=== PATIENT | male | born 2000 | race African-American/Black ===

== ENCOUNTER 2021-11-24 09:49 | Emergency (ER) | payer MEDICAID, SELFPAY ==
[2021-11-24 09:52] VITALS: BP 151/80; PULSE 77; RESP 18; TEMP 36.2; O2SAT 99; BMI 29.3
--- NOTE | 2021-11-24 10:04 | EKG12_ITS ---
Test Reason : GENERAL Blood Pressure : / mmHG Vent. Rate : 079 BPM Atrial Rate : 079 BPM P-R Int : 188 ms QRS Dur : 098 ms QT Int : 376 ms P-R-T Axes : 028 058 025 degrees QTc Int : 431 ms Normal sinus rhythm Normal ECG Confirmed by ARIANNA MADRIGAL, JIA ([id number]), pictures editor ISIS CHIU ([id number]) on 11/27/2021 11:17:20 AM Referred By: Confirmed By:JIA KELLER MD
--- NOTE | 2021-11-24 10:05 | EX.ED.DYSGE1 ---
HPI History of Present Illness Chief Complaint: General Illness Informant: patient and parent Narrative Narrative: 21-year-old male presenting to the emergency department after being referred here from urgent care. Patient states that for about 5 days he has been experiencing lightheadedness and chest tightness that caused him to become nauseated. No vomiting diarrhea. No headache fever chills URI symptoms. He denies any rashes. No room spinning. He notes that sometimes his eyes are sensitive to light. He states that when his symptoms become significant causes him some anxiety. At urgent care he had negative COVID. There is a holosystolic heart murmur heard. Is unclear if this is new as the patient does not know much of his medical history. [facility] Medical History Chronic neck and back pain Fatigue Home Medications NK 11/24/21 [History Last Taken Unknown] Allergy/AdvReac Type Severity Reaction Status Date / Time No Known Allergies Allergy Verified 11/24/21 09:52 Family History Other Lupus Social History (Updated 11/24/21 @ 10:[address] Quintin Harris DO) current gender identity: male Smoking Status: Never smoker substance use type: does not use ROS ROS ED ROS Narrative Lightheadedness Constitutional Constitutional ED: Denies chills or weight loss Eyes Eyes: Reports other Details: light sensitivity ; Denies change in vision or diplopia ENT ENT ED: Denies ear pain, rhinorrhea or sore throat Cardiovascular Cardiovascular: Reports chest pain; Denies orthopnea, palpitations or racing heartbeat Respiratory/Chest Respiratory/Chest: Denies cough, dyspnea or orthopnea Gastrointestinal Gastrointestinal: Reports nausea; Denies abdominal pain, diarrhea or vomiting Genitourinary Genitourinary ED: Denies dysuria, hematuria or urinary frequency Musculoskeletal Musculoskeletal: Denies arthralgias or myalgias Integumentary Denies abscess or rash Neurologic Neurologic: Denies headache(s) or weakness Psychiatric Psychiatric: Denies anxiety, depression, suicidal ideation or suicidal thoughts Endocrine Endocrinology: Denies polydipsia, polyphagia or polyuria Allergic/Immunologic Allergic/Immunologic ED: Denies mouth swelling, tongue swelling or urticaria EXAM Physical Exam Const Vital Signs: 11/24/21 09:52 11/24/21 10:20 Temperature 97.2 F L Temperature Source Temporal Pulse Rate 77 Respiratory Rate 18 Respiratory Effort Normal Non-Labored Respiratory Pattern Normal Blood Pressure 151/80 H Blood Pressure Mean 103 Pulse Ox 99 Oxygen Delivery Method Room Air Positive well nourished and well developed General Appearance ED: well developed HEENT Reports normocephalic, head/scalp atraumatic, TM's clear and moist mucous membranes Negative for trauma Tympanic Membrane ED: Yes TM's clear Eyes PERRL and EOMs intact bilaterally Neck no lymphadenopathy, supple and no JVD Resp normal respiratory effort and clear to auscultation bilaterally Cardio regular rate, regular rhythm and no murmurs GI normal to inspection, nondistended, normoactive bowel sounds and non-tender Palpation: soft Back/Spine no CVA tenderness and normal ROM Extremity normal to inspection General Extremety ED: Negative for edema General Extremity: Negative for edema Neuro oriented x3 and CN's II-XII intact bilaterally Sensorium / Orientation: alert Motor Exam: strength 5/5 throughout Psych mental status grossly normal Mood & Affect: Negative for depressed or tearful Skin no rashes or lesions noted and no wounds MDM MDM MDM Narrative Medical decision making narrative: CBC CMP normal. Troponin normal. My interpretation of the chest x-ray is no acute process. At this point patient's chief complaint of lightheadedness with intermittent nausea is rather nonspecific. Do not see anything obvious at this point but would recommend him following up with establishing primary care. Lab Data Attestation: I reviewed the patient's lab results. Labs: Laboratory Results - last 24 hr 11/24/21 11/24/21 10:25 10:25 WBC 5.4 RBC 5.62 Hgb 15.2 Hct 46.5 MCV 82.7 MCH 27.0 MCHC 32.7 RDW Std Deviation 38.1 RDW Coeff of Emily 12.6 Plt Count 252 MPV 9.8 Immature Gran % (Auto) 0.200 Neut % (Auto) 52.3 Lymph % (Auto) 37.7 [place] % (Auto) 8.5 Eos % (Auto) 0.7 Baso % (Auto) 0.6 Absolute Neuts (auto) 2.8 Absolute Lymphs (auto) 2.03 Nucleated RBC % 0 Sodium 138 Potassium 4.1 Chloride 105 Carbon Dioxide 28.0 Anion Gap 5 BUN 15 Creatinine 1.03 Estim Creat Clear Calc 144.17 Est GFR (MDRD) Af Amer 117 Est GFR (MDRD) Non-Af 97 BUN/Creatinine Ratio 14.6 Glucose 104 Calcium 9.5 Total Bilirubin 0.40 AST 24 ALT 34 Alkaline Phosphatase 85 Troponin I High Sens < 3 L Total Protein 8.1 Albumin 4.3 Globulin 3.8 Albumin/Globulin Ratio 1.1 EKG Initial EKG: Attestation: I personally reviewed and interpreted this EKG as follows: Comments: Normal sinus rhythm with a ventricular rate of 79 bpm Discharge Plan Triage Chief Complaint: General Illness ED Provider: Quintin Harris Dx/Rx/DC Orders Clinical Impression: Lightheadedness, Nausea Prescriptions: No Action NK RF: 0 Primary Care Provider: Care Physician,No Primary Referrals: Care Physician,No Primary [Primary Care Provider] - Activity Restrictions/Additional Instructions: As discussed you may discuss a echocardiogram with your doctor. Disposition Disposition: Home, Self Care
--- NOTE | 2021-11-24 10:09 | NURSING ---
NO OLD EKGS
[2021-11-24 10:44] LABS: Absolute Lymphocyte Count 2.03 X10^3/uL (0.83-4.51); Absolute Neutrophil Count 2.8 X10^3/uL (2.0-7.7); Basophil# 0.03 X10^3/uL; Basophil% 0.6 % (0-1); Eosinophil# 0.04 X10^3/uL; Eosinophils% 0.7 % (0-5); Hematocrit 46.5 % (40-54); Hemoglobin 15.2 g/dL (13.0-16.5); Lymphocyte # 2.03 X10^3/ul (0.83-4.51); Lymphocyte % 37.7 % (19-41); Mean Corp Hgb Conc 32.7 g/dL (32-36); Mean Corpuscular Volume 82.7 fL (80-94); Mean Platelet Vol. 9.8 fl (6.2-12.0); Monocyte# 0.46 X10^3/uL; Monocyte% 8.5 % (0-10); NRBC Flagged by Analyzer 0 % (0-5); Neutrophil # 2.82 X10^3/uL (2.7-7.7); Neutrophil % 52.3 % (47-70); Platelet Count 252 K/mm3 (150-450); RBC Distribution Width CV 12.6 % (11.6-14.6); RBC Distribution Width SD 38.1 fl (35.1-43.9); Red Blood Count 5.62 M/mm3 (4.6-6.2); White Blood Count 5.4 K/mm3 (4.4-11.0)
[2021-11-24 10:57] LABS: ALB/GLOB Ratio 1.1 RATIO (0.9-2.4); AST(SGOT) 24 U/L (15-37); Alanine Aminotransfer ALT/SGPT 34 U/L (16-61); Albumin, Serum 4.3 g/dL (3.2-5.0); Alkaline Phosphatase 85 U/L (45-117); Anion Gap 5 (5-15); BUN 15 mg/dL (7-18); BUN/Creat Ratio 14.6 RATIO (10-20); Calcium,Total 9.5 mg/dL (8.5-10.1); Chloride 105 mmol/L (98-107); Creatinine, Serum 1.03 mg/dL (0.70-1.30); EST Glomerular Filtration Rate 97 mL/min (>60); Est Glom Filt Rate - Afr Amer 117 mL/min (>60); Estimated Creatinine Clearance 144.17 ml/min; Globulin 3.8 g/dL (2.2-4.2); Glucose 104 mg/dL (74-106); Potassium 4.1 mmol/L (3.5-5.1); Protein, Total 8.1 g/dL (6.4-8.2); Sodium Level 138 mmol/L (136-145); Troponin-I HS < 3 pg/mL (3.0-78.0)
--- NOTE | 2021-11-24 11:05 | RAD_ITS ---
STUDY: X-RAY CHEST REASON FOR EXAM: Male, 21 years old. CHEST PAIN TECHNIQUE: Single AP portable view of the chest. COMPARISON: None. FINDINGS: The lungs are clear and expanded. There is no demonstrated pleural abnormality. Normal size heart. Normal mediastinum and annita. Normal visualized pulmonary arteries. Normal visualized aortic arch and descending thoracic aorta. Normal visualized thoracic spine. Normal visualized ribs, clavicles, and shoulders. There is no demonstrated abnormality of the visualized soft tissue structures of the upper abdomen. RAD/Chest 1 View (Portable) IMPRESSION: Normal x-ray examination of the chest. Electronically Signed: Tyler Chapman MD at 11:40 EDT ,
== END 2021-11-24 11:28 | disposition home or self-care (01) ==
PROVIDERS: Emergency Provider Emergency Medicine; Visit Provider Emergency Medicine
DX: R42 Dizziness and giddiness (principal); R11.0 Nausea
CPT/HCPCS: 71045; 80053; 84484; 85025; 93005; 99283; A4216

== ENCOUNTER 2022-11-16 00:12 | Emergency (ER) | payer MEDICAID, SELFPAY ==
[2022-11-16 00:13] VITALS: BP 163/96; PULSE 82; RESP 16; TEMP 36.9; O2SAT 100; BMI 26.6
--- NOTE | 2022-11-16 00:15 | EKG12_ITS ---
Test Reason : PALPS Blood Pressure : / mmHG Vent. Rate : 095 BPM Atrial Rate : 095 BPM P-R Int : 174 ms QRS Dur : 106 ms QT Int : 354 ms P-R-T Axes : 060 058 021 degrees QTc Int : 444 ms Sinus rhythm with occasional and consecutive Premature ventricular complexes Nonspecific ST abnormality Abnormal ECG Confirmed by YOAN MADRIGAL, TAN ([id number]), editorial intern [employer] CHIU ([id number]) on 11/18/2022 1:14:25 PM Referred By: CYDNEY Confirmed By:TAN MILTON MD
--- NOTE | 2022-11-16 00:18 | EDS_ITS ---
HPI History of Present Illness Chief Complaint: Palpitations Narrative Narrative: 22-year-old male here for palpitations. The patient states this started tonight while playing videogames. The patient further states this occurred approximately 2 hours prior to arrival as he was playing videogames. Notes he thinks could be anxiety. Notes he has history of a heart murmur. Denies family history of early cardiac . The patient denies recent surgery in the last 4 weeks or immobilization in the last 3 days, denies previous diagnosis of DVT or PE, hemoptysis, unilateral leg swelling or malignancy with treatment the last 6 months. No estrogen use noted. Denies any bleeding diathesis. Denies any volume loss such as vomiting or diarrhea. Any chest pain or shortness of breath. Denies any dizziness, lightheadedness or excessive fatigue. Denies any recent illness such as cough or or fever. Denies any lower extremity edema, orthopnea or paroxysmal nocturnal dyspnea. PFSH PFS Medical History Chronic neck and back pain Fatigue Home Medications NK 11/24/21 [History Last Taken Unknown] Allergy/AdvReac Type Severity Reaction Status Date / Time No Known Allergies Allergy Verified 11/16/22 00:18 Family History Other Lupus Social History (Updated 11/24/21 @ 10:[address] Quintin Harris DO) Smoking Status: Never smoker substance use type: does not use ROS ROS ED ROS Narrative Constitutional: Denies fever HEENT: Denies sore throat Neck: Denies neck pain Cardiovascular: Endorses palpitations Respiratory: Denies shortness of breath GI: Denies nausea vomiting or abdominal pain : Denies changes in urinary habits Musculoskeletal: Denies muscle or joint pain Neurologic: Denies numbness weakness or loss of sensation Skin denies rash EXAM Physical Exam Narrative Exam Narrative: Nursing triage notes reviewed, Vital signs reviewed Constitutional: please see mdm HENT: MMM Eyes: Pupils equal round and reactive to light, Extraocular muscles intact Neck: No stridor, no JVD, full neck ROM Lungs: Clear to auscultation, No wheezing or rales. No increased work of breathing, no conversational dyspnea, no accessory muscle use, no nasal flaring. No respiratory distress noted Heart: Regular rate and rhythm, No murmurs, No rubs and No gallops, 2+ distal pulses (radial, femoral, posterior tibial) in all extremities Abdomen: Soft, there is no tenderness, rigidity, rebound or guarding, no obvious peritoneal signs, no palpable pulsatile abdominal masses, no auscultated abdominal bruit : No CVAT Extremities: No edema Neuro: No focal neurological deficits, cranial nerves II through XII intact, 5/5 strength in all extremities. Intact sensation to light touch in all extremities, 2+ reflexes bilateral patella dens. Normal gait. No ataxia. Skin: No rash or lesions noted Const Vital Signs: 11/16/22 00:13 11/16/22 00:14 11/16/22 01:00 Temperature 98.4 F Temperature Source Temporal Pulse Rate 82 97 Respiratory Rate 16 18 Respiratory Effort Normal Non-Labored Blood Pressure 163/96 H 156/87 H Blood Pressure Mean 118 Pulse Ox 100 100 Oxygen Delivery Method Room Air MDM MDM MDM Narrative Medical decision making narrative: Chief Complaint: Palpitations External records reviewed: EKG from November 2021 shows normal sinus rhythm, normal axis, intervals, no STEMI Seen here in 2021 for lightheadedness MDM: Patient was hemodynamically stable, afebrile, nontoxic-appearing. EKG with normal sinus rhythm, normal axis, normal intervals, occasional PVCs, no STEMI. No evidence of WPW, Brugada or ARVD based on his EKG is likely etiology is PVCs. There is no clinical evidence to suggest severe dehydration, anemia, PE, ACS or other more life-threatening or concerning arrhythmia. There was no clinical evidence to suggest thyrotoxicosis. Patient denied stimulant drug use. He does not appear intoxicated. He had no fever to suggest sepsis. He had no respiratory symptoms to suggest infection, heart failure, ACS. Factors affecting care: none Social determinants of health: Denies cocaine, methamphetamine History obtained from others: The patient's girlfriend Shared decision making: I will have a discussion with the patient and or visitors regarding risk/benefits of further testing or admission. They will be made aware of of the risk/benefits inherent in this decision they will be given the opportunity to voice understanding. Consults: None Discharge Plan Triage Chief Complaint: Palpitations ED Provider: Lamine Enamorado Dx/Rx/DC Orders Clinical Impression: Frequent PVCs Instructions: PVCs Prescriptions: No Action NK Primary Care Provider: Care Physician,No Primary Referrals: Esperanza Munoz DO [Med Staff - Screw Machine Operator] - Care Physician,No Primary [Primary Care Provider] - Activity Restrictions/Additional Instructions: Thank you for trusting us with your care today! Please take Tylenol (2 pills, 650 mg), ibuprofen (2 pills, 400 mg) every 6 hours as needed for pain and fever control. Please return to the emergency department if your symptoms change or worsen. Specifically if you develop lightheadedness, fatigue, if you lose consciousness, develop chest pain, shortness of breath, leg swelling. Please try to increase hydration by drinking electrolyte containing fluids such as Pedialyte, body armor or Gatorade. Please eat a healthy diet and decrease her stimulant use such as caffeine, tea, coffee, caffeinated beverages such as energy drinks. Please follow with your primary care physician for further outpatient evaluation and management. Disposition Disposition: Home, Self Care Discharge Date/Time: 11/16/22 01:00
[2022-11-16 01:00] VITALS: BP 156/87; PULSE 97; RESP 18; O2SAT 100
== END 2022-11-16 01:00 | disposition home or self-care (01) ==
LOC: ED 00:52
PROVIDERS: Emergency Provider Emergency Medicine; Visit Provider Emergency Medicine
DX: I49.3 Ventricular premature depolarization (principal); F41.9 Anxiety disorder, unspecified
CPT/HCPCS: 93005; 99282

== ENCOUNTER → 2024-09-14 | Outpatient (CLI) | payer MEDICAID, SELFPAY ==
[2024-09-14 16:55] LABS: Absolute Lymphocyte Count 2.15 X10^3/uL (0.83-4.51); Basophil# 0.03 X10^3/uL; Basophil% 0.4 % (0-1); Eosinophil# 0.04 X10^3/uL; Eosinophils% 0.6 % (0-5); Hematocrit 45.5 % (40-54); Hemoglobin 14.3 g/dL (13.0-16.5); Lymphocyte # 2.15 X10^3/ul (0.83-4.51); Mean Corp Hgb Conc 31.4 g/dL (32-36); Mean Corpuscular Hgb 26.5 pg (27.0-32.0); Mean Corpuscular Volume 84.4 fL (80-94); Mean Platelet Vol. 10.3 fl (6.2-12.0); Monocyte# 0.47 X10^3/uL; NRBC Flagged by Analyzer 0 % (0-5); Neutrophil # 4.01 X10^3/uL (2.7-7.7); Neutrophil % 59.9 % (47-70); Platelet Count 250 K/mm3 (150-450); RBC Distribution Width CV 12.9 % (11.6-14.6); RBC Distribution Width SD 39.4 fl (35.1-43.9); Red Blood Count 5.39 M/mm3 (4.6-6.2); White Blood Count 6.7 K/mm3 (4.4-11.0)
[2024-09-14 17:38] LABS: ALB/GLOB Ratio 1.6 RATIO (0.9-2.4); AST(SGOT) 34 U/L (<=37); Alanine Aminotransfer ALT/SGPT 33 U/L (<=46); Alkaline Phosphatase 71 U/L (40-129); Anion Gap 12 (5-15); BUN 13 mg/dL (4-19); BUN/Creat Ratio 13.1 RATIO (10-20); Calcium 10.2 mg/dL (7.6-11.0); Chloride 99 mmol/L (96-108); Cholesterol 137 mg/dL (<=190); EST Glomerular Filtration Rate 107 (>60); Globulin 3.2 g/dL (2.2-4.2); Glucose 94 mg/dL (70-99); High Density Lipoprotein 65 mg/dL; Low Density Lipoprotein Calc. 65 mg/dL; Potassium 4.7 mmol/L (3.3-5.1); Protein, Total 8.2 g/dL (5.9-8.4); Sodium Level 139 mmol/L (133-145); Total Bilirubin 0.48 mg/dL (0.00-1.30); Triglycerides 33 mg/dL; Very Low Density Lipoprotein 7 mg/dL (5-40)
== END | disposition home or self-care (01) ==
LOC: BIMLAB 15:25
PROVIDERS: PCP Internal Medicine; Referring Provider Internal Medicine; Visit Provider Internal Medicine
DX: Z13.6 Encounter for screening for cardiovascular disorders (principal); R00.2 Palpitations
CPT/HCPCS: 36415; 80053; 80061; 84439; 84443; 85025